=== PATIENT | male | born 1975 | race Caucasian/White ===

== ENCOUNTER → 2018-06-13 | Day surgery (SDC) | payer BC, OTHER ==
[2018-05-27 14:50] VITALS: BMI 24.0
[~2018-06-13] VITALS: Ht 188 cm; Wt 84.1 kg
[~2018-06-13] MED LIST: ACET-1256 PO; ASPITAB42 PO; LIDOCAINE HCL 2% 2 ML VIAL (20MG/ML) ONE; LISI-461 PO; MULT-506 PO; OMEP-334 PO; PROPOFOL IV EMULSION 10 MG/ML 20 ML VIAL ONE; SODIUM CHLORIDE 0.9% 500ML 500 ML IV ONE
[2018-06-13 11:41] VITALS: Ht 188 cm; Wt 84.1 kg
--- NOTE | 2018-06-13 12:26 | Endo History and Physical ---
History & Physical Date of Service: Jun 13, 2018. Chief Complaint: FAMILY HX OF COLON CANCER Referring Physician: DR SAHNI History of Present Illness 43 yo CM who presents for colonoscopy secondary to family history of colon cancer. Past Medical History Reflux Past Surgical History Hx Cardiac Surgery: No Hx Internal Defibrillator: No Hx Pacemaker: No Hx Abdominal Surgery: No Hx of Implantable Prosthesis: No Hx Post-Op Nausea and Vomiting: No Hx Cancer Surgery: No Hx Thoracic Surgery: No Hx Orthopedic: No Hx Urinary Tract Surgery: No Family History Colon CA Social History Smoking Status: Never Smoker Hx Substance Use: No Hx Alcohol Use: No Allergies Coded Allergies: Codeine (Verified Allergy, Mild, vomiting, 05/27/18) Ibuprofen (Verified Adverse Reaction, Mild, SWELLING, 05/27/18) Current Medications Reported Home Medications Medications Dose Route/Sig Max Daily Dose Days Date Category Tylenol (Acetaminophen) 500 Mg Tab 2 Tab PO Q6 2 06/13/[address] (Omeprazole) 40 Mg Cap 1 Tab PO DAILY 05/27/18 Reported Zestril (Lisinopril) 10 Mg Tab 10 Mg PO DAILY 05/27/16 Reported Multivitamin (Multivitamins) Tab 1 Tab PO DAILY 12/19/15 Reported Headache Relief (Fmnemdk-Tilkwddovahbs-Ftttlnre) 1 Tab Tab 2 Tabs PO BID PRN 12/19/15 Reported Vital Signs Weight (Kilograms): 84.09 Height (Feet): 6 Height (Inches): 2 Date Time Temp Pulse Resp B/P (MAP) Pulse Ox O2 Delivery O2 Flow Rate FiO2 06/13/18 11:38 154/95 (114) 06/13/18 11:37 36.4 84 18 143/100 (114) 99 Room Air Physical Exam General Appearance: WD/WN, no apparent distress Respiratory/Chest: Auscultation: breath sounds normal Cardiovascular: Heart Auscultation: RRR Abdomen: Bowel Sounds: normal Inspection & Palpation: soft, non-distended, no tenderness, guarding & rebound Assessment and Plan Assessment: 43 yo CM who presents for colonoscopy secondary to family history of colon cancer. Plan: Proceed with colonoscopy.
--- NOTE | 2018-06-13 12:59 | GI REPORT ---
Patient Name: Rigoberto Pickett Procedure Date: 06/13/2018 12:15 PM Date of : 1975 Admit Type: Outpatient Age: 43 Gender: Male Attending MD: Addison Bunch DO Procedure: Colonoscopy Providers: Addison Bunch DO Referring MD: Ashwin Damian Indications: Family history of colon cancer in a first-degree relative Medicines: Monitored Anesthesia Care Complications: No immediate complications. Estimated Blood Loss: Estimated blood loss: none. Procedure: Pre-Anesthesia Assessment: - Prior to the procedure, a History and Physical was performed, and patient medications and allergies were reviewed. The patient's tolerance of previous anesthesia was also reviewed. The risks and benefits of the procedure and the sedation options and risks were discussed with the patient. All questions were answered, and informed consent was obtained. Prior Anticoagulants: The patient has taken no previous anticoagulant or antiplatelet agents. ASA Grade Assessment: II - A patient with mild systemic disease. After reviewing the risks and benefits, the patient was deemed in satisfactory condition to undergo the procedure. After I obtained informed consent, the scope was passed under direct vision. Throughout the procedure, the patient's blood pressure, pulse, and oxygen saturations were monitored continuously. The scope was introduced through the anus and advanced to the terminal ileum. The colonoscopy was performed without difficulty. The patient tolerated the procedure well. The quality of the bowel preparation was good. The terminal ileum, ileocecal valve, appendiceal orifice, and rectum were photographed. Findings: The perianal and digital rectal examinations were normal. A 4 mm polyp was found in the rectum. The polyp was sessile. The polyp was removed with a cold snare. Resection and retrieval were complete. Non-bleeding internal hemorrhoids were found during retroflexion. The hemorrhoids were small. Impression: - One 4 mm polyp in the rectum, removed with a cold snare. Resected and retrieved. - Non-bleeding internal hemorrhoids. Recommendation: - Resume previous diet. - Continue present medications. - Repeat colonoscopy for surveillance based on pathology results. - Return to primary care physician as previously scheduled. Addison Bunch DO 06/13/2018 12:59:07 PM This report has been signed electronically. Note Initiated On: 06/13/2018 12:15 PM Number of Addenda: 0 I attest to the content of the Intraoperative Record and orders documented therein, exceptions below {[id number]}
--- NOTE | 2018-06-13 13:09 | Anesthesiology Progress Note ---
Anesthesia Post Op Note Date & Time Jun 13, 2018 at 13:08 Vital Signs Pain Intensity: 0 Vital Signs Past 12 Hours Date Time Temp Pulse Resp B/P (MAP) Pulse Ox O2 Delivery O2 Flow Rate FiO2 06/13/18 11:38 154/95 (114) 06/13/18 11:37 36.4 84 18 143/100 (114) 99 Room Air Notes Mental Status: alert / awake / arousable, participated in evaluation Pt Amnestic to Procedure: Yes Nausea / Vomiting: adequately controlled Pain: adequately controlled Airway Patency, RR, SpO2: stable & adequate BP & HR: stable & adequate Hydration State: stable & adequate Anesthetic Complications: no major complications apparent
[2018-06-13 13:22] VITALS: BP 132/88; PULSE 65; O2SAT 98
--- NOTE | 2018-06-13 13:54 | Discharge Instructions ---
Endoscopy Patient Instructions Date / Procedure(s) Performed Jun 13, 2018. Colonoscopy Allergy Information Coded Allergies: Codeine (Verified Allergy, Mild, vomiting, 05/27/18) Ibuprofen (Verified Adverse Reaction, Mild, SWELLING, 05/27/18) Discharge Date / Findings Jun 13, 2018. Rectal polyp Internal hemorrhoids Medication Instructions OK to resume all medications today as prescribed Reported Home Medications Medications Dose Route/Sig Max Daily Dose Days Date Category Tylenol (Acetaminophen) 500 Mg Tab 2 Tab PO Q6 2 06/13/[address] (Omeprazole) 40 Mg Cap 1 Tab PO DAILY 05/27/18 Reported Zestril (Lisinopril) 10 Mg Tab 10 Mg PO DAILY 05/27/16 Reported Multivitamin (Multivitamins) Tab 1 Tab PO DAILY 12/19/15 Reported Headache Relief (Lurqidn-Qmrlzooqwuhja-Bppuycuy) 1 Tab Tab 2 Tabs PO BID PRN 12/19/15 Reported Provider Instructions Activity Restrictions - No exercising or heavy lifting for 24 hours. - Do not drink alcohol the day of the procedure. - Do not drive a car or operate machinery until the day after the procedure. - Do not make any important decisions or sign important papers in 24 hours after the procedure. Following Day: - Return to full activity which may include returning to work/school. Diet Start your diet with liquids and light foods (jello, soup, juice, toast). Then eat your usual diet if not nauseated. Treatment For Common After Affects For mild abdominal pain, bloating, or excessive gas: - Rest - Eat lightly - Lie on right side Follow-Up Information Follow-up with DR SAHNI as scheduled Anesthesia Information What You Should Know You have had a procedure that required some medicine to reduce anxiety and discomfort. This treatment is called moderate sedation. After receiving the treatment, you may be sleepy, but you will be able to breathe on your own. The effects of the treatment may last for several hours. Follow these instructions along with Activity/Diet recommendations noted above: * Do NOT do anything where dizziness or clumsiness would be dangerous. * Rest quietly at home today, then you can be up and about tomorrow. * Have a responsible person stay with you the rest of today. * You may have had an I.V. today. If so, you may take the dressing off later today. Recommendations Call your doctor if: * Trouble breathing * Continuous vomiting for more than 24 hours * Temperature above 101 degrees * Severe abdominal pain or bloating * Pain not relieved by pain medicine ordered * There is increased drainage or redness from any incision * A large amount of rectal bleeding greater than 2-3 tablespoons. (If you had a polyp/s removed or have hemorrhoids, a small amount of blood - from the rectum is to be expected.) * You have any unanswered questions or concerns. IN THE EVENT OF A SERIOUS EMERGENCY, GO TO THE NEAREST EMERGENCY ROOM Your discharge instructions were prepared by provider Addison Bunch. Patient Instructions Signature Page Rigoberto Pickett Patient (or Guardian) Signature/Date: I have read and understand the instructions given to me by my caregivers. Caregiver/RN/Doctor Signature/Date: The above-named patient and/or guardian has received patient instructions on this date. + Original Patient Signature Page (only) stays with chart. Please make copy for patient.
== END | disposition home or self-care (01) ==
LOC: C.GI 11:14
PROVIDERS: ATTEND Internal Medicine
DX: D12.8 Benign neoplasm of rectum (principal); Z80.0 Family history of malignant neoplasm of digestive organs; K64.8 Other hemorrhoids; I10 Essential (primary) hypertension; K21.9 Gastro-esophageal reflux disease without esophagitis; Z88.5 Allergy status to narcotic agent; Z88.6 Allergy status to analgesic agent

== ENCOUNTER 2020-06-24 06:04 | Observation (INO) ==
--- NOTE | 2020-06-11 16:18 | PAT Medication Instructions ---
Medication Instructions Date of Service June 11, 2020 Home Medications acetaminophen [Tylenol] 325 mg PO QID PRN ibuprofen 200 mg PO Q6H PRN lisinopril 10 mg PO QAM omeprazole 40 mg PO QAM ASK your surgeon for instructions ibuprofen 200 mg PO Q6H PRN DO NOT take the morning of surgery lisinopril 10 mg PO QAM Take morning of surgery With a small sip of water, OTHERWISE NOTHING TO EAT OR DRINK AFTER MIDNIGHT: acetaminophen [Tylenol] 325 mg PO QID PRN (if needed, may be taken up to four hours before surgery) omeprazole 40 mg PO QAM Other Notes If you have any questions please call us at [phone] or [phone] or [phone] or [phone]
--- NOTE | 2020-06-12 14:00 | Anesthesiology Consultation ---
Date of Service June 12, 2020 Assessment & Plan (1) Encounter for pre-operative examination: COVID Status: As of 06/12 assessment, patient denies travel to endemic area, known exposure/sick contacts, or symptoms of COVID19. Patient instructed that they and their household members must follow strict social distancing guidelines, wear a mask in public and avoid travel for 14 days prior to surgery. Preoperative COVID19 testing to be completed prior to surgery per surgeon's arra ngements. 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 There have been 3 cases of COVID19 among staff recently but he has not had any interaction with them (they were day shift and he works nights), and they are now home quarantining. All employees at the facility are required to mask/social distance/get temps checked daily at work. If patient unable to be off of work after COVID test, will need to inquire AM DOS about possible exposure/risk, and consider [facility] rapid testing. Chart Review Chart Review: Acceptable Risk for Surgery and Patient seen in Pre Admission Testing Teaching & Discussion Instructed NPO after midnight before surgery, except medications with 15 cc of w ater. Medication instructions provided according to the PAT guidelines. History Surgery Operation Date: 06/24/20 13:55 Proposed Procedures p C5-C7 Anterior Cervical Discectomy and Fusion Spinal Cord Monitoring - Jefry Cardoso DO Height/Weight Height: 6 ft 2 in Weight: 90.1 kg Allergies Allergy/AdvReac Type Severity Reaction Status Date / Time codeine Allergy Mild vomiting Verified 06/11/20 14:00 ibuprofen AdvReac Mild eye Verified 06/11/20 14:00 SWELLING Medications Home Medications Medication Instructions Recorded Confirmed Last Taken acetaminophen [Tylenol] 325 mg PO QID PRN 06/11/20 06/11/20 Unknown ibuprofen 200 mg PO Q6H PRN 06/11/20 06/11/20 Unknown lisinopril 10 mg PO QAM 06/11/20 06/11/20 Unknown omeprazole 40 mg PO QAM 06/11/20 06/11/20 Unknown Past Medical History Medical History GERD (gastroesophageal reflux disease) Herniated disc, cervical History of kidney stones passed on own Hypertension Exercise / Class Metabolic Activity 1 > 8 Run/Swim/Ski/Tennis Past Surgical History Surgical History Hx of colonoscopy Hx of removal of cyst from behind leg Past Anesthesia History No Hx of Anesthesia Complications and No Family Hx of Anesthesia Complications History of PONV No Hx of PONV and Hx of Motion Sickness STOP BANG Total 1 Social History Smoking Status: Never smoker Do You Dip or Chew Tobacco: No Hx Alcohol Use: No Hx Substance Use: No substance use type: does not use Review of Systems Pt denies any recent chest pain, shortness of breath, palpitations, cough, fever, URI, or uncontrolled acid reflux. Physical Exam Vital Signs BP: 116/79 P: 92bpm SPO2: 97% RA T: 97.8 F R: 16 ENMT Mouth: + dental restorations (2 crowns on molars); no chipped teeth and no loose teeth Thyromental Distance: < 3.5 Finger Breadths (3) Mallampati Class: II Neck normal visual inspection and + facial hair (stubble); neck extension not limited Respiratory normal respiratory effort Auscultation: lungs clear to auscultation bilaterally Cardiovascular Rate/Rhythm: regular rate and regular rhythm Heart Sounds: no murmur Extremities: no edema Testing Laboratory Results 06/12/20 14:11 06/12/20 14:11 PT 10.9 Seconds (9.0-12.0) 06/12/20 14:11 INR 1.0 (0.9-1.1) 06/12/20 14:11 APTT 25.5 Seconds (21.0-31.0) 06/12/20 14:11 Urine Color Dark Yellow 06/12/20 14:11 Urine Appearance Clear (Clear) 06/12/20 14:11 Urine pH 5.0 (4.5-7.5) 06/12/20 14:11 Ur Specific [place] 1.027 (1.000-1.030) 06/12/20 14:11 Urine Protein Negative (Negative) 06/12/20 14:11 Urine Glucose (UA) Negative (Negative) 06/12/20 14:11 Urine Ketones Trace (Negative) H 06/12/20 14:11 Urine Nitrite Negative (Negative) 06/12/20 14:11 Ur Leukocyte Esterase Negative (Negative) 06/12/20 14:11 Blood Type A Positive 06/12/20 14:11 Antibody Screen NEGATIVE 06/12/20 14:11 Electrocardiogram Date: 06/12/20 Findings: + NSR @ (68bpm) Chest X-Ray Date: 06/12/20 Findings: + NAD
--- NOTE | 2020-06-12 14:43 | XRay Report ---
XR chest Pre-admission PA/Lat CLINICAL HISTORY: Preoperative chest COMPARISON STUDY: December 2014 FINDINGS: The cardiac and mediastinal contours are normal. There is no evidence of focal pulmonary co nsolidation. There is no evidence of failure. No pleural effusions are visualized.[ IMPRESSION: No active disease in the chest. ACT 112: Negative or not required by law. Electronically signed by: Peter Jeronimo M.D. 06/12/2020 2:42 PM
[2020-06-12 15:02] LABS: Appearance Urine Clear (Clear); Basophils # (auto) 0.02 K/uL (0-0.2); Basophils % (auto) 0.4 %; Bilirubin Urine Negative (Negative); Blood Urine Negative (Negative); Color Urine Dark Yellow; Eosinophils # (auto) 0.07 K/uL (0-0.5); Eosinophils % (auto) 1.5 %; Glucose Urine UA Negative (Negative); Hematocrit (blood only) 44.9 % (42-52); Hemoglobin 15.7 g/dL (14.0-18.0); Ketones Urine Trace (Negative); Leukocyte Esterase Urine Negative (Negative); Lymphocytes % (auto) 27.9 %; Mean Corpuscular Hemoglobin 30.1 pg (25-34); Mean Corpuscular Volume 86.2 fL (80-100); Mean Platelet Volume 11.1 fL (7.4-10.4); Monocytes # (auto) 0.44 K/uL (0.11-0.59); Monocytes % (auto) 9.4 %; Neutrophils # (auto) 2.83 K/uL (1.4-6.5); Neutrophils % (auto) 60.8 %; Nitrite Urine Negative (Negative); Platelet Count 210 K/uL (130-400); Protein Urine Negative (Negative); RDW Coefficient of Variation 13.6 % (11.5-14.5); RDW Standard Deviation 42.5 fL (36.4-46.3); Red Blood Count 5.21 M/uL (4.7-6.1); Specific Gravity Urine 1.027 (1.000-1.030); Urobilinogen Urine Negative (Negative); White Blood Count 4.66 K/uL (4.8-10.8)
[2020-06-12 15:13] LABS: Partial Thromboplastin Ratio 0.9; Partial Thromboplastin Time 25.5 Seconds (21.0-31.0); Prothrombin Time 10.9 Seconds (9.0-12.0)
[2020-06-12 15:14] LABS: BUN Creatinine Ratio 14.7 (10-20); Calcium 9.4 mg/dl (8.5-10.1); Creatinine Clr Calc Pharmacy 96.5 ml/min; Est GFR (African American) 92.2; Est GFR (Non-African American) 79.5; Potassium 4.5 mmol/L (3.5-5.1)
--- NOTE | 2020-06-12 16:31 | Electrocardiogram Report ---
Test Reason : Blood Pressure : / mmHG Vent. Rate : 068 BPM Atrial Rate : 068 BPM P-R Int : 164 ms QRS Dur : 088 ms QT Int : 374 ms P-R-T Axes : 052 056 016 degrees QTc Int : 397 ms Normal sinus rhythm Normal ECG No previous ECGs available Confirmed by Dakotah Santiago ([id number]) on 06/12/2020 4:31:04 PM Referred By: Jefry Cardoso Confirmed By:Dakotah Santiago
[~2020-06-24 06:04] MED LIST changes: -ACET-1256 PO; +ACETAMINOPHEN 500 MG TAB PO SCH; -ASPITAB42 PO; +CEFAZOLIN 2000MG 2,000 MG/15 ML SYR IV SCH; +CeleBREX 200 MG CAP PO SCH; +GABAPENTIN 900 MG DOSE PO SCH; -LIDOCAINE HCL 2% 2 ML VIAL (20MG/ML) ONE; -LISI-461 PO; +LR 15ML/HR IV SCH; -MULT-506 PO; -OMEP-334 PO; -PROPOFOL IV EMULSION 10 MG/ML 20 ML VIAL ONE; -SODIUM CHLORIDE 0.9% 500ML 500 ML IV ONE
--- OUTSIDE RECORDS SUMMARY | 2020-06-24 06:07 | External Medical Summary | Continuity of Care Document ---
:1975 Author Name Chance Alfredo, Provider Address Unavailable Unavailable , Care Team Providers Name Role Phone Case Addison VALDIVIA Unavailable [email or web address], [email or web address] Unavailable Unavailable Unavailable Unavailable Unavailable Problems Active medical history not documented Allergies and Adverse Reactions Allergy history not documented Medications Medications not documented Procedures Procedures not documented Immunizations Immunizations not documented Plan of Treatment Planned Observations Planned Goals not documented Results No Known Results Results not documented
[2020-06-24] MEDS ORDERED: BACITRACIN INJ 50,000 UNIT VIAL ONE (07:06)
[2020-06-24] MEDS ORDERED: NEOSTIGMINE METHYLSULFATE 1 MG/ML 10ML VIAL ONE (07:12)
[2020-06-24] MEDS ORDERED: ROCURONIUM BROMIDE 10 MG/ML 5 ML VIAL IV ONE ×2 (07:12→09:02)
[2020-06-24] MEDS ORDERED: ONDANSETRON INJ 2 MG/ML 2 ML VIAL ONE ×2 (07:12→10:01)
[2020-06-24] MEDS ORDERED: MIDAZOLAM HCL 1 MG/ML 2ML VIAL ONE (07:12)
[2020-06-24] MEDS ORDERED: SUCCINYLCHOLINE CHLORIDE 20 MG/ML 10 ML VIAL IV ONE (07:12)
[2020-06-24] MEDS ORDERED: DEXAMETHASONE SOD INJ 4 MG/ML VIAL ONE (07:12)
[2020-06-24] MEDS ORDERED: GLYCOPYRROLATE 0.2 MG/ML VIAL ONE (07:12)
[2020-06-24] MEDS ORDERED: HYDROmorphone INJ 2 MG/ML SYR/VIAL ONE (07:13)
[2020-06-24] MEDS ORDERED: fentaNYL citrate 100 MCG/2 ML VIAL ONE (07:13)
--- NOTE | 2020-06-24 07:30 | History & Physical Bridge Note ---
Date of Service June 24, 2020 History & Physical Bridge Note I have examined the patient, reviewed the History & Physical and in the interval since the performance of the History & Physical I have noted the following changes of clinical significance: no changes noted
--- NOTE | 2020-06-24 07:31 | History & Physical Report ---
Date of Service June 24, 2020 Assessment & Plan (1) Cervical stenosis of spinal canal: Admission and Anticipated Discharge Date Admission Date: C5-C7 anterior cervical discectomy and fusion History of Present Illness Chief Complaint: Neck and arm pain Primary Care Provider: Ashwin Damian Jr, DO This is a 45-year-old male who presents with chronic persistent neck and arm pain. Failing extensive course of nonoperative care is here for surgical invention. Allergies Allergy/AdvReac Type Severity Reaction Status Date / Time codeine Allergy Mild vomiting Verified 06/24/20 06:49 ibuprofen AdvReac Mild eye Verified 06/24/20 06:49 SWELLING Home Medications Home Medications Medication Instructions Recorded Confirmed Type acetaminophen [Tylenol] 325 mg PO QID PRN 06/11/20 06/24/20 History ibuprofen 200 mg PO Q6H PRN 06/11/20 06/24/20 History lisinopril 10 mg PO QAM 06/11/20 06/24/20 History omeprazole 40 mg PO QAM 06/11/20 06/24/20 History Past Med/Surg History Medical History GERD (gastroesophageal reflux disease) Herniated disc, cervical History of kidney stones passed on own Hypertension Surgical History Hx of colonoscopy Hx of removal of cyst from behind leg Social History Smoking Status: Never smoker Second Hand Exposure: No; Do You Dip or Chew Tobacco: No; Tobacco Cessation Education Requested by Patient: No Hx Alcohol Use: No Hx Substance Use: No Preferred Language: Somali Communication Ability: Effective Bleacher Lard Required: No Beliefs That Will Affect Care: None Current Living Situation: Spouse Other Information That Helps Us Care for You: No Feels Safe at Home: Yes Safety Concerns: Feels Safe At This Time Physical Exam Physical Exam: Patient is alert and oriented neurologically intact. Heart regular rate and rhythm. Lungs clear to auscultation. Results & Data ([facility]) Vital Signs (Past 12 Hours) Vital Signs Temp Pulse Resp BP Pulse Ox 06/24/20 06:51 36.7 C 68 18 161/96 H 100
[2020-06-24] MEDS ORDERED: PROPOFOL IV EMULSION 10 MG/ML 20 ML VIAL IV ONE (09:00)
[2020-06-24] MEDS ORDERED: FLOSEAL HEMOSTATIC MATRIX 10ML TOP ONE (09:15)
--- NOTE | 2020-06-24 09:26 | Operative Report ---
Post Operative Report Pre & Post Diagnosis Operation Date: 06/24/20 07:45 Pre-Op Diagnosis: Cervical stenosis with herniated nucleus pulposus C5-6 C6-7 Post-Op Diagnosis: Same I identified the patient and participated in the time-out.: Yes Procedure Operation Date: 06/24/20 07:45 Actual Procedures #1 anterior cervical discectomy with bilateral foraminotomies C5-6 and C6-7. #2 anterior cervical arthrodesis C5-6 and C6-7. #3 placement of Spira 8 mm cage at C5-6 and 9 mm cage at C6-7 both filled with DBM. #4 application of bosch plate and screws across C5-6 C6-7. Surgeon Jefry Cardoso, Experimental Aircraft Mechanic Emilee Krishnan Estimated Blood Loss 10 Findings Consistent with Post-Op Diagnosis Specimens None Indications This is a 45-year-old male who presents with above-mentioned diagnosis after failing a course of nonoperative care is here for surgical invention. Description of Procedure Patient was met with identified informed consent obtained. Patient was then taken to the operative suite underwent an patient placed in a supine position on the Shar table head Arias teller head. All bony prominences well-padded eyes inspected to ensure no external pressure placed upon. This point identified the C6 vertebral body and a transverse incision was placed along the right anterior aspect of the cervical spine aligns region. Sharp dissection with assistance of bipolar electrocautery was performed down to and exposing anterior cervical spine from C5-C7. Self-retaining retractor was placed. Then performed a complete discectomy of C5-6 out to the uncovertebral joints bilaterally. [place] distracting pins were lysed assist in visualization. Removed all posterior annular fibers and longitudinal ligament bilateral foraminotomies performed. Endplates were then burred to subcortical bleeding bone and an 8 mm Spira cage filled with DBM tapped in position. I then p roceeded to C6-C7. Again complete discectomy performed out to the uncovertebral joints bilaterally. [place] distracting pins again utilized. Removed all posterior annular fibers and longitudinal ligament removing massive amounts of disc material within the left neural foramen. After complete decompression endplates were burred to subcortical leading bone and a 9 mm Spira cage filled with DBM tapped in position. Distracting apparatus was removed all anterior osteophytes burred to a smooth cortical surface and a bosch plate and screws applied with assistance of fluoroscopy. Incision was then copiously irrigated explored to ensure no damage to surrounding structures remaining bleeding. 10 round MINOO drain inserted. Was then closed with 2 Vicryl in the fashion of 4 Monocryl for final skin closure. Steri-Strip sterile dressings placed. Patient waken taken to PACU in stable condition. Please note Emilee Krishnan was present at the entire procedure involved the patient positioning complex portions of the surgery and final skin closure. Lastly Emilee Krishnan was present throughout the entire surgery involved the patient positioning complex portions of the surgery and final skin closure. I attest to the content of the Intraoperative Record and any orders documented therein. Any exceptions are noted below.
--- NOTE | 2020-06-24 09:56 | Fluoroscopy Report ---
INTRAOPERATIVE RADIOGRAPHS CLINICAL HISTORY: C5 C7 spinal fusion. Fluoroscopy time: 15 seconds. FINDINGS: 3 spot fluoroscopic views of the cervical spine are presented. There has been discectomy at C5-C6 and C6-C7 with anterior fusion from C5-C7. The orthopedic hardware appears intact. An endotrac heal tube is in place. IMPRESSION: Intraoperative images from C5-C7 spinal fusion as above. Electronically signed by: George Bernardo M.D. 06/24/2020 9:55 AM
[2020-06-24] MEDS ORDERED: HYDROmorphone INJ 2 MG/ML SYR/VIAL IV PRN (10:04)
[2020-06-24] MEDS ORDERED: fentaNYL citrate 100 MCG/2 ML VIAL IV PRN (10:04)
[2020-06-24] MEDS ORDERED: ATROPINE SULFATE 0.1 MG/ML 10ML SYR IV PRN (10:04)
[2020-06-24] MEDS ORDERED: PROMETHAZINE HCL 6.25 MG in SODIUM CHLORIDE 0.9% 50 ML IV PRN (10:04)
[2020-06-24] MEDS ORDERED: ONDANSETRON INJ 2 MG/ML 2 ML VIAL IV PRN ×2 (10:04→11:35)
[2020-06-24] MEDS ORDERED: ePHEDrine sulfate 50 MG/ML AMP IV PRN (10:04)
--- NOTE | 2020-06-24 10:22 | Anesthesiology Progress Note ---
Date of Service June 24, 2020 Anesthesia Post Procedure Vital Signs Vital Signs: Temp Pulse Pulse Resp BP Pulse Ox 06/24/20 10:20 55 L 12 121/69 98 06/24/20 10:10 54 L 15 117/78 96 06/24/20 10:06 62 14 128/86 100 06/24/20 09:50 55 L 14 121/95 100 06/24/20 09:42 36.5 C 64 14 146/92 H 100 06/24/20 07:40 66 127/91 06/24/20 06:51 36.7 C 68 18 161/96 H 100 Pain Intensity Left Shoulder: Pain Intensity: 8 Transfer of Care Handoff Completed per policy Notes Mental Status: alert / awake / arousable Patient Amnestic to Procedure: Yes Nausea / Vomiting: adequately controlled Pain: adequately controlled Airway Patency, RR, SpO2: stable & adequate BP & HR: stable & adequate Hydration State: stable & adequate Anesthetic Complications: no major complications apparent
[2020-06-24] MEDS ORDERED: HYDROmorphone INJ 1 MG/ML SYRINGE IV PRN (11:35)
[2020-06-24] MEDS ORDERED: ACETAMINOPHEN 1,000 MG/100 ML VIAL IV PRN (11:35)
[2020-06-24] MEDS ORDERED: DO NOT ADMINISTER PNEUMOCOCCAL VACCINE PRN (11:35)
[2020-06-24] MEDS ORDERED: SOD PHOSPHATE/SOD BIPHOSPHATE ENEMA 132 ML BTL PR PRN (11:35)
[2020-06-24] MEDS ORDERED: LACTATED RINGER'S 1,000 ML IV SCH (11:35)
[2020-06-24] MEDS ORDERED: MAGNESIUM HYDROXIDE SUSP 30 ML UDC PO PRN (11:35)
[2020-06-24] MEDS ORDERED: DO NOT ADMINISTER FLU VACCINE PRN (11:35)
[2020-06-24] MEDS ORDERED: LORazepam 0.5 MG/1 ML VIAL IV PRN (11:35)
[2020-06-24] MEDS ORDERED: RACEPINEPHRINE 2.25% NEBU SOLN 0.5 ML VIAL INH PRN (11:35)
[2020-06-24] MEDS ORDERED: ALUMINUM/MAGNESIUM SUSP 30 ML UDC PO PRN (11:35)
[2020-06-24] MEDS ORDERED: OXYCODONE HCL IR 5 MG TAB (IMMEDIATE RELEASE) PO PRN (11:35)
[2020-06-24] MEDS ORDERED: LORazepam 0.5 MG TAB PO PRN (11:35)
[2020-06-24] MEDS ORDERED: NALOXONE HCL 0.4 MG/1 ML VIAL/CARP IV PRN (11:35)
[2020-06-24] MEDS ORDERED: DEXAMETHASONE SOD PHOSPHATE 8 MG in SYRINGE 0 ML IV PRN (11:35)
[2020-06-24] MEDS ORDERED: FAMOTIDINE 20 MG TAB PO PRN (11:35)
[2020-06-24] MEDS ORDERED: PROMETHAZINE HCL 12.5 MG in SODIUM CHLORIDE 0.9% 50 ML IV PRN (11:35)
[2020-06-24] MEDS ORDERED: METOCLOPRAMIDE HCL INJ 5 MG/ML 2 ML VIAL IV PRN (11:35)
[2020-06-24] MEDS ORDERED: ONDANSETRON 4 MG OD TAB PO PRN (11:35)
[2020-06-24] MEDS ORDERED: HYDROmorphone INJ 0.5 MG/0.5 ML SYR IV PRN (11:35)
[2020-06-24] MEDS ORDERED: ACETAMINOPHEN 325 MG TAB PO PRN (11:35)
[2020-06-24] MEDS ORDERED: METOCLOPRAMIDE HCL INJ 5 MG/ML 2 ML VIAL IV ONE (14:03)
[2020-06-24] MEDS: CEFAZOLIN 2000MG 2,000 MG/15 ML SYR IV SCH ×2 (15:11→23:27)
[2020-06-24] MEDS: ACETAMINOPHEN 500 MG TAB PO PRN ×2 (15:11→23:26)
[2020-06-24] MEDS ORDERED: DOCUSATE SODIUM/SENNA 50/8.6MG TAB PO SCH (21:00)
[2020-06-25] MEDS ORDERED: POLYETHYLENE (MIRALAX) 17 GM PACK ONE (08:24)
[2020-06-25] MEDS ORDERED: PANTOprazole 40 MG TAB PO SCH (09:00)
[2020-06-25] MEDS ORDERED: lisinopriL 10 MG TAB PO SCH (09:00)
[2020-06-25] MEDS ORDERED: POLYETHYLENE (MIRALAX) 17 GM PACK PO SCH (09:27)
--- NOTE | 2020-06-25 09:54 | Discharge Summary ---
Date of Service June 25, 2020 Admission HPI Per Admitting Provider This is a 45-year-old male who presents with chronic persistent neck and arm pain. Failing extensive course of nonoperative care is here for surgical invention. Principal Diagnosis Cervical radiculopathy Discharge Data Allergies Allergy/AdvReac Type Severity Reaction Status Date / Time codeine Allergy Mild vomiting Verified 06/24/20 06:49 ibuprofen AdvReac Mild eye Verified 06/24/20 06:49 SWELLING Procedures Performed Operation Date: 06/24/20 07:45 Actual Procedures p C5-C7 Anterior Cervical Discectomy and Fusion, Spinal Cord Monitoring(Not Applicable) - Jefry Cardoso DO Ordered Studies 06/24/20 07:45 FL cervical 2-3V Routine FL fluoroscopy <1hr Routine Hospital Course (1) Cervical stenosis of spinal canal: Patient went anterior cervical discectomy fusion tolerated this well second orthopedic for postop labor postop day 1 strength is improved swallowing well no hoarseness MINOO drain decreasing appropriately. Subsequent discharge home. Discharge orders instructions from the chart for further review. Total Time Total Time Spent Total Time Spent (In Minutes): 20 minutes Discharge Plan Discharge Items Patient Disposition: Home - Self-Care Reason For Visit: Spinal Stenosis, Cervical Region Discharge Diagnosis: Cervical spinal stenosis with hernia nucleus pulposus and radiculopathy Activity: As commented below Non-emergency contact: Primary Care Provider Call non-emergency contact if: you have any medication questions Follow-up/Referrals: Ashwin Damian Jr, DO [Primary Care Provider] - Diet: Regular Addtl Attending Provider Instructions: ACTIVITY RECOMMENDATIONS: SELF CARE INSTRUCTIONS AFTER CERVICAL FUSIONS 1. No smoking. Smoking drastically decreases the chance of a solid fusion. 2. No bending, lifting more than 5 pounds, or twisting (roll like a log when turning in bed). 3. You may shower 3 days after surgery. Thoroughly dry wound. Do not soak in the tub. 4. Cervical collar: Must be worn at all times including sleeping. You may remove the brace only to bath, eat and if you are sitting in a recliner. 5. Please walk as much as you can for exercise. Gradually increase the distance that you walk as your endurance increases. SPECIAL CARE INSTRUCTIONS: VERY IMPORTANT TO READ AND REVIEW A. Do not take any anti-inflammatory medications (i.e. Indocin, Advil, Aspirin, Naprosyn, Aleve, Motrin, etc.) as these may inhibit the chance of a solid fusion. Tylenol is okay to take. B. Your surgical incision has been closed with a cosmetic suture under the skin that will dissolve in about 6 weeks. In 14 days, you can use a pair of clean scissors and cut the suture that is left outside of the skin at the ends of your incision. C. Complications are uncommon, but please contact us if you have any signs or symptoms of: 1. wound infection (fever higher than 102.5 degrees F, redness, separation of wound, drainage, or increasing pain from the incision) 2. blood clots in legs (pain, swelling, redness and warmth in legs) 3. urinary tract infection (fever higher than 102.5 degrees, burning upon urination or increased frequency of urination) 4. nerve problems (inability to walk on your toes or heels, numbness, loss of bowel or bladder control) 5. any other symptoms that concern you. D. Please call the office at if you have any concerns or questions about your operation or recovery. MANAGING PAIN AFTER SPINAL SURGERY 1. Narcotic medication is intended for short-term use and will be provided for surgical pain. Surgical pain usually lasts for a period of 4-6 weeks. Narcotic medication includes Percocet, Vicodin, Darvocet, Tylenol #3 or Lortab. 2. Longer-term pain is more appropriately treated with non-narcotic medication such as Tylenol ES. 3. Muscle spasm is not appropriately treated with narcotics. Muscle relaxers such as Soma, Flexeril or Skelaxin can be used along with Tylenol ES. 4. Remember that we all live with some "aches and pains". This is not unusual or uncommon after an injury or as we get older. 5. We will provide appropriate medication within the normal guidelines of their prescribed use. We will also be very cautious and aware of potential abuse and extended duration of patients' medication needs. 6. Please allow 2-3 days to process refills. Prescriptions will not be mailed but must be picked up at the office. FOLLOW UP VISIT: Keep your scheduled follow-up appointment. Any questions, please call the office at . Pending Studies at Discharge: No Stand-Alone Forms: My [facility], Opioid Pain Management, Smoking Cessation Medications and DC Order Prescriptions: New tramadol 50 mg tablet 50 mg PO Q6H PRN (Reason: pain, moderate) Qty: 10 RF: 0 oxycodone 5 mg tablet 5 mg PO Q6H PRN (Reason: pain, severe) Qty: 10 RF: 0 Continued acetaminophen [Tylenol] 325 mg Tablet 325 mg PO QID PRN (Reason: Pain) RF: 0 omeprazole 40 mg Capsule,Delayed Release(Dr/Ec) 40 mg PO QAM RF: 0 lisinopril 10 mg Tablet 10 mg PO QAM RF: 0 Discontinued ibuprofen 100 mg Tablet 200 mg PO Q6H PRN (Reason: Pain) RF: 0 Discharge Orders: Discharge Order (Routine); Ordered 06/25/20 Ordered By: Jefry Amaya/Other Patient Handouts: DVT Post Op Prevention, Preventing Deep Vein Thrombosis Admission Data Admit Date/Time: 06/24/20 10:28 Attending Provider: Jefry Cardoso Admit Provider: Jefry Cardoso Primary Care Provider: Ashwin Damian Jr Other Interventions: Discharge Summary Assessment (RN) Last Done: 06/25/20 09:12
[2020-06-26] MEDS ORDERED: bisacodyL 10 MG SUPP PR PRN (09:27)
== END 2020-06-25 11:46 | disposition home or self-care (01) ==
LOC: ASU 06:04 → 3E 06:04